=== PATIENT | female | born 1940 | race Caucasian/White ===

== ENCOUNTER 2017-04-22 07:25 | Inpatient (IN) | payer MEDICARE ==
[~2017-04-22] VITALS: Ht 149.9 cm; Wt 78.3 kg
[~2017-04-22 07:25] MED LIST: ASPI-147 PO; CALTCHW5 PO; CENTCHW3 PO; LEVO50TA4 PO; OMEP40CA2 PO; PROB500T8 PO; ROSU10 PO; [UNRECOGNIZED DRUG - CODE] PO
[2017-04-22] MEDS ORDERED: INSULIN HUMAN REGULAR 1,000 UNITS/10 ML VIAL SQ PRN (08:15)
[2017-04-22] MEDS ORDERED: CHLORHEXIDINE GLUCONATE 2 % 1 PACK (2 CLOTHS) TOPICAL PRN (08:15)
[2017-04-22] MEDS ORDERED: ceFAZolin 2 GM PREMIX 50 ML IV SCH (08:15)
[2017-04-22] MEDS ORDERED: METOPROLOL TARTRATE 25 MG TAB PO PRN (08:15)
[2017-04-22] MEDS ORDERED: POVIDONE IODINE 5% (ANTISEPSIS KIT) 4 APPLICATIONS EACH NARE PRN (08:15)
[2017-04-22] MEDS ORDERED: CHLORHEXIDINE GLUCONATE 4% SOLN 120 ML BTL TOPICAL SCH (08:15)
[2017-04-22] MEDS ORDERED: LACTATED RINGER'S 1000 ML IV PRN (08:15)
[2017-04-22] MEDS ORDERED: SODIUM CHLORID 0.9% 500 ML IV PRN (08:15)
[2017-04-22] MEDS ORDERED: GENTAMICIN SULFATE 80 MG/2 ML VIAL ONE (09:28)
[2017-04-22] MEDS ORDERED: EXPAREL PERI-ARTICULAR INJECTION (TOTAL VOL. 100 ML) P-ARTICULR SCH ×2 (10:00)
[2017-04-22] MEDS ORDERED: SODIUM CHLORIDE 0.9% IV SCH ×5 (10:00→13:00)
[2017-04-22] MEDS ORDERED: TRANEXAMIC ACID IV SCH ×5 (10:00→13:00)
[2017-04-22] MEDS ORDERED: ACETAMINOPHEN 1000 MG/100 ML 100 ML IV ONE (10:07)
[2017-04-22] MEDS ORDERED: MORPHINE SULFATE 4 MG/ML INJ IV PUSH PRN (10:15)
[2017-04-22] MEDS ORDERED: ACETAMINOPHEN/HYDROcodone 325 MG/7.5 MG TAB PO PRN (10:15)
[2017-04-22] MEDS ORDERED: MAGNESIUM HYDROXIDE SUSP 30 ML CUP PO PRN (10:15)
[2017-04-22] MEDS ORDERED: SODIUM CHLORIDE 0.9% FLUSH 5 ML FLUSH IVF PRN (10:15)
[2017-04-22] MEDS ORDERED: Post-op Orders (for Pharmacy) MISC XX ONE (10:15)
[2017-04-22] MEDS ORDERED: ONDANSETRON HCL 4 MG/2 ML VIAL IVP PRN (10:15)
[2017-04-22] MEDS ORDERED: ZOLPIDEM TARTRATE 5 MG TAB PO PRN (10:15)
--- NOTE | 2017-04-22 10:18 | HHI.FF ---
Face to Face Verification Diagnosis: (1) Status post total right knee replacement Physical Therapy Gait training Knee: Total knee, Protocol: Right, Gait training, Full weight bearing Right LE Weight Bearing: WB as tolerated Right LE Range of Motion: Active ROM (AROM, AAROM, PROM. ROM goal is 0 to 135 degrees. ROM in the OR was 0 to 150 degrees.) Nursing Nursing: Dressing changes Dressing Changes: Daily dressing change (Start on postop day 7.), Coverderm/ [place] Additional Instructions Remove steristrips on postop day 14. I have seen patient Sandra Shirley on 04/22/17. My clinical findings support the need for the requested home health care services because: Ltd mobility - disease progression Limited ability to care for self High risk of falls I certify that my clinical findings support that this patient is homebound because: Post-op weakness Unsteady gait/balance Unsafe to leave home unassisted Bahman Fischer MD (Charles) Apr 22, 2017 10:18
[2017-04-22] MEDS ORDERED: ROPIVACAINE 0.5% PF INJ 30 ML VIAL ONE (10:22)
[2017-04-22] MEDS ORDERED: ECASA81 PO (10:22)
--- NOTE | 2017-04-22 12:31 | HHI.PR ---
Immediate Post Op Note Procedure Date: Apr 22, 2017 Pre Op Diagnosis: (1) Primary osteoarthritis of right knee Post Op Diagnosis: (1) Primary osteoarthritis of right knee Surgeon: Lamont Fischer MD Jowl Trimmer(s): MAGED Gilmore Procedure: Right total knee arthroplasty with [place] Triathlon prosthesis, uncemented. Findings: Osteoarthritis. Complications: None Specimen(s) removed: None Estimated blood loss: 100ml Anesthesia: Regional Block (Adductor canal), Spinal, Local (Exparel) Drains: Hemovac (2) IVF Patient to: PACU Patient Condition: Good Implant/Devices: SEE IMPLANT LOG (if applicable) Date/Time of Procedure: SEE SURGICAL CARE RECORD Bahman Fischer MD (Charles) Apr 22, 2017 12:31
[2017-04-22] MEDS ORDERED: HYDR-3580 PO (12:34)
--- NOTE | 2017-04-22 13:08 | MP ---
cc: Codey CORDERO. DATE OF SURGERY 04/22/1929 PREOPERATIVE DIAGNOSIS Primary osteoarthritis right knee. POSTOPERATIVE DIAGNOSIS Primary osteoarthritis right knee. OPERATION PERFORMED Right total knee arthroplasty with [place] Triathlon prosthesis (uncemented). SURGEON Phylicia Cordero MD GEOMAGNETICIAN MAGED Gilmore ANESTHESIA Spinal with supplemental adductor canal block and local. INDICATIONS AND FINDINGS This 77-year-old woman has at least a 2-year history of right knee pain progressively worsening to the point that her ambulation tolerance is one-half block because of pain. She has difficulty with stairs as well as standing from a seated position and vice versa. This awakens her. She has to lean on a cart to shop. Treatment has included anti-inflammatory agents, analgesics, activity modification, intraarticular steroids, ambulatory aids and exercises without any real improvement in function. Physical findings showed genu varum with medial laxity and tenderness in the medial compartment especially. X-rays showed loss of articular cartilage to [id number] in the medial compartment with osteophytes, eburnation and patellofemoral irregularities. Operative findings were consistent with the radiographic findings with there being significant arthritis throughout the knee but especially in the medial compartment where there was loss of articular cartilage to subchondral bone, osteophytes. There was eburnation. PROSTHESIS USED [place] Triathlon prosthesis with the femur being a size 3 right, uncemented, cruciate-retaining, the tibia being a tritanium baseplate size 3, the spacer being a 9-mm cruciate-retaining X3 polyethylene liner and the patella being a size 32-mm asymmetric patella. This was tritanium backed. PROCEDURE The patient was brought to the clean-air operating suite and a spinal anesthetic was administered followed by an adductor canal block. The patient was then placed in a supine position on the operating table with a small rolled sheet under the right hip and pneumatic tourniquet being placed about the right thigh. The limb was then prepped with alcohol, Hibiclens and Chloraprep and draped in the usual manner with the knee draped free. Preoperatively according to protocol she received prophylactic antibiotic in the form of Ancef and also received tranexamic acid. These were both according to protocols. The appropriate time-out procedure was carried out. Local anesthesia was administered into the incision area prior to making the incision. The incision was then made from three fingerbreadths above the superior medial pole of the patella down to the medial aspect of the tibial tubercle. The incision was deepened through subcutaneous tissues to the retinacular structures which were exposed medially and laterally. Medial retinacular incision was made from the superior medial pole of the patella down to the tibial tubercle and up into the quadriceps tendon splitting it longitudinally in the medial one-third. The patella was reflected. The infrapatellar fat pad was debulked. Medial and lateral dissection was carefully carried out. Medial meniscectomy and lateral meniscectomy were initiated. Fenestration was made in the distal end of the femur using the appropriate drill. The distal femoral cutting guide and jig were assembled for a 5-degree 8-mm cut. The cutting block was stabilized with pins. The jig was removed. The distal femoral cut was completed with the oscillating saw. The sizing guide was then positioned in place and stabilized with pins. The size was determined to be a size 3. The 4-in-1 cutting block was then positioned in place. Anterior and posterior cuts were made followed by posterior and anterior chamfer cuts. Osteophytes were trimmed. Attention was directed to the tibia. Medial and lateral meniscectomies were completed. The extramedullary distal femoral cutting guide and jig were assembled for the appropriate cut. The proximal tibial cutting guide was stabilized with pins. The jig was removed. The depth of the cut was verified with the spacer block. The proximal tibial cut was completed with the oscillating saw. This was then checked again with a spacer block. Everything looked appropriate. The posterior capsule was then was then injected with Exparel and anesthetized. The trial prosthesis was then inserted as noted above for sizes. The tibial baseplate and spacer were inserted first followed by the femoral component which was impacted into place onto the femur. The rotation for the tibial component was then affirmed and stabilized with pins. The patella drill guide was positioned in place. Patella drill holes were made. The trial patella was positioned in place. The knee was then taken through a range of motion which was easily 0 degrees extension to 150 degrees of flexion. The stability was excellent in flexion and extension. Distal femoral drill holes were then made followed by removal of the femoral and patellar trials. The tibial punch was impacted through its guide and then removed. The tibial drill guide was positioned in place and seated appropriately. Drill holes were made. The cut ends of bone were cleaned with pulse lavage. The tibial component was then impacted into place and seated appropriately. Spacer was inserted as well. The femoral component was then impacted into place and seated appropriately. The patella component was then positioned and was seated with the patella vice. The drains were brought out the superolateral aspect of the suprapatellar pouch. The remainder of the Exparel was then injected throughout the knee in the usual manner. Wound closure then commenced using 0 Vicryl interrupted [id number] sutures for retinacular and capsular structures, 2-0 Vicryl interrupted simple sutures with buried knots for the subcutaneous tissues and 4-0 Monocryl continuous subcuticular closure for the skin. The wound was then dressed with Steri-Strips followed by a silver impregnated dressing and Sof-Rol, cooling pad and Hao bandage from the base of the toe to midthigh. The patient was transferred from the operating room to the recovery room in satisfactory condition having tolerated the procedure well. COUNTS Correct. SPECIMENS None. ESTIMATED BLOOD LOSS 100 mL. MD RONNA Santizo/CARLOS /12:43 PM /12:58 PM
[2017-04-22] MEDS: LACTATED RINGER'S 1000 ML INJ 1,000 ML IV SCH ×2 (13:10→22:41)
[2017-04-22] MEDS: KETOROLAC TROMETHAMINE 30 MG/ML (IVP) VIAL IVP SCH ×2 (13:10→17:14)
[2017-04-22] MEDS ORDERED: DO NOT ADM ANY ANTICOAGULANT DRUGS PRN (13:45)
--- NOTE | 2017-04-22 13:59 | RADRPT ---
EXAM DATE/TIME: 04/22/2017 13:25 [facility] COMPARISON: No previous studies available for comparison. INDICATIONS : Post op total right knee. MEDICAL HISTORY : None. SURGICAL HISTORY : None. ENCOUNTER: Initial ACUITY: 1 day PAIN SCORE: 7/10 LOCATION: Right Knee FINDINGS: AP and lateral views of the knee following arthroplasty reveals a prosthesis in anatomic alignment. F racture is not appreciated. Surgical drain is evident CONCLUSION: Status post total knee arthroplasty. Krishna Armstrong MD FACR Board Certified Radiologist. This report was verified electronically.
--- NOTE | 2017-04-22 14:39 | PD.CONS ---
HPI Service [facility] Hospitalists Consult Requested By Lamont Fischer M.D. Reason for Consult Medical Management Primary Care Physician Darrian Malone MD Diagnoses: (1) Status post total right knee replacement (2) GERD (gastroesophageal reflux disease) (3) Hypothyroidism History of Present Illness Written by Guy Steel PA-C, acting as scribe for Dr. Shellie Chavez on 04/22/17 at 14:38. Ms. Shirley is 77 yo, with history of hyperlipidemia, GERD, hypothyroidism, and osteoarthritis of both shoulders. Ms. Shirley underwent total right knee arthroplasty on 04/22/[address] Fischer , who consulted the hospitalist team to medically manage her condition. At time of interview, she had recently returned from surgery and was seen in the PACU. Ms. Shirley stated her pain was well controlled. She denied past history of difficulty post surgery. She denied cough, shortness of breath, urinary difficulties, abdominal/chest pain. She did endorse occasional constipation. She denied nausea, vomiting, or diarrhea. She denied visual issues at time of interview. A 10 pt ROS was conducted and, except as noted above, was negative. Review of Systems Constitutional: DENIES: Fatigue, Fever, Change in appetite Endocrine: DENIES: Polyuria Eyes: DENIES: Blurred vision Respiratory: DENIES: Apneas, Cough, Wheezing, Shortness of breath Cardiovascular: DENIES: Chest pain Gastrointestinal: DENIES: Abdominal pain Genitourinary: DENIES: Urinary frequency, Urinary incontinence, Urgency, Hematuria Hematologic/lymphatic: DENIES: Bruising Neurologic: DENIES: Headache Psychiatric: DENIES: Anxiety Except as stated in HPI: all other systems reviewed are Neg Past Family Social History Allergies: Coded Allergies: No Known Allergies (Verified Allergy, Unknown, 04/22/17) Past Medical History GERD Hyperlipidemia Cholecystitis Hypothyroidism Osteoarthritis of both shoulders. Past Surgical History Broken pelvis repair Tonsillectomy Cholecystectomy Bilateral shoulder replacement BERTHA Reported Medications Reported Meds & Active Scripts Active Hydrocodone-Acetamin 7.5-325 (Hydrocodone/Acetaminophen) 7.5 Mg-325 Mg Tablet 1 Tab PO Q4H PRN Reported Centrum Silver (Multiple Vitamins W/ Minerals) 400 Mcg-250 Mcg Chw 1 Tab PO EVERY OTHER DAY Probenecid 500 Mg Tab 50 Mg PO Q12HR Fish Oil Concentrate ([place]-3 Fatty Acids) 1,000 Mg Capsule 6 Cap PO HS Caltrate 600+D Chew (Calcium Carbonate-Vitamin D Chew) 600-400 Mg-Unit Chew 1 Tab PO EVERY OTHER DAY Omeprazole 40 Mg Cap 40 Mg PO BID Ecotrin Low Strength (Aspirin) 81 Mg Tabdr 81 Mg PO DAILY Crestor (Rosuvastatin Calcium) 10 Mg Tab 10 Mg PO DAILY Levothyroxine (Levothyroxine Sodium) 50 Mcg Tab 50 Mcg PO DAILY Active Ordered Medications Current Medications Medications (Trade) Dose Ordered Sig/Davin Route Start Time Stop Time Status Last Admin Lactated Ringer's 1,000 ml @ 30 mls/hr Q24H PRN IV 04/22/17 08:15 04/25/17 08:14 04/22/17 08:20 Sodium Chloride 500 ml @ 30 mls/hr [id number] PRN IV 04/22/17 08:15 04/25/17 08:14 (Lopressor) 25 mg EXECUTIVE MEETING MANAGER PRN PO 04/22/17 08:15 04/25/17 08:14 (Betadine 5% Antisepsis Kit) 1 applic EXECUTIVE MEETING MANAGER PRN EACH NARE 04/22/17 08:15 04/25/17 08:14 04/22/17 08:20 (Chlorhexidine 2% Cloth) 3 pack EXECUTIVE MEETING MANAGER PRN TOPICAL 04/22/17 08:15 04/25/17 08:14 04/22/17 07:45 (NovoLIN R INJ) See Protocol Table ... EXECUTIVE MEETING MANAGER PRN SQ 04/22/17 08:15 04/25/17 08:14 (Hibiclens 4% Top Soln) 1 applic ONCE TOPICAL 04/22/17 08:15 04/25/17 08:14 04/22/17 08:00 Cefazolin Sodium/ Dextrose 50 ml @ 100 mls/hr EXECUTIVE MEETING MANAGER IV 04/22/17 08:15 04/25/17 08:14 04/22/17 11:38 Tranexamic Acid 504 mg/Sodium Chloride 105.04 ml @ 200 mls/ hr ONCE IV 04/22/17 10:00 04/22/17 16:00 04/22/17 11:40 Tranexamic Acid 504 mg/Sodium Chloride 105.04 ml @ 200 mls/ hr ONCE IV 04/22/17 13:00 04/22/17 19:00 Bupivacaine Liposome 20 ml/ Sodium Chloride 100 ml @ 200 mls/hr ONCE P-ARTICULR 04/22/17 10:00 04/22/17 16:00 (Synthroid) 50 mcg DAILY PO 04/23/17 09:00 (Benemid) 50 mg Q12HR PO 04/22/17 21:00 (Oscal-D 250-125) 500 mg Q48H PO 04/23/17 09:00 (Theragran M Tab) 1 tab EVERY OTHER DAY PO 04/23/17 09:00 (Protonix) 40 mg BID PO 04/22/17 21:00 (Lipitor) 20 mg DAILY PO 04/23/17 09:00 Lactated Ringer's 1,000 ml @ 80 mls/hr [id number] IV 04/22/17 10:11 04/22/17 13:10 (NS Flush) 2 ml UNSCH PRN IVF 04/22/17 10:15 (NS Flush) 2 ml BID IVF 04/22/17 21:00 Cefazolin Sodium 1000 mg/Sodium Chloride 100 ml @ 200 mls/hr Q6H IV 04/22/17 18:00 04/23/17 06:29 (Morphine Inj) 4 mg Q3H PRN IV PUSH 04/22/17 10:15 ([place] 7.5-325 Mg) 1 tab Q4H PRN PO 04/22/17 10:15 ([place] 7.5-325 Mg) 2 tab Q4H PRN PO 04/22/17 10:15 (Toradol Inj) 15 mg Q6H IVP 04/22/17 12:00 04/24/17 06:01 04/22/17 13:10 Tranexamic Acid 504 mg/Sodium Chloride 105.04 ml @ 200 mls/ hr UNSCH IV 04/22/17 13:00 04/22/17 19:00 04/22/17 14:47 (Zofran Inj) 4 mg Q6H PRN IVP 04/22/17 10:15 (Colace) 100 mg BID PO 04/23/17 21:00 (Ambien) 5 mg HS PRN PO 04/22/17 10:15 (Milk Of Magnesia Liq) 30 ml DAILY PRN PO 04/22/17 10:15 (Ecotrin Ec) 81 mg BID PO 04/22/17 21:00 Miscellaneous Information ALL NURSING DEPARTFL... UNSCH PRN .XX 04/22/17 13:45 04/23/17 13:44 Family History Mother- of myocardial infarction at age 78 Father-had Bone cancer, age and cause of not noted. Brother-had esophageal cancer. Social History Pt reproted she stopped smoking in 1992; duration and pack use not disclosed. Pt denied alcohol use Pt denied illicit/recreational drug use. Physical Exam Vital Signs Vital Signs Date Time Temp Pulse Resp B/P (MAP) Pulse Ox O2 Delivery O2 Flow Rate FiO2 04/22/17 12:58 97.4 72 16 101/49 (66) 97 Nasal Cannula 2 04/22/17 08:30 97.3 68 16 120/57 (78) 97 Physical Exam GENERAL: This is a well-nourished, well-developed patient, in no apparent distress. SKIN: No rashes, ecchymoses or lesions. Cool and dry.Right legged wrapped in camila bandage. HEAD: Atraumatic. Normocephalic. EYES: Pupils equal round and reactive. Extraocular motions intact. No scleral icterus. No injection or drainage. ENT: Nose without bleeding or purulent drainage. Airway patent. NECK: Trachea midline. No lymphadenopathy. Supple and nontender. CARDIOVASCULAR: Regular rate and rhythm without murmurs, gallops, or rubs. RESPIRATORY: Clear to auscultation. Breath sounds equal bilaterally. No wheezes , rales, or rhonchi. GASTROINTESTINAL: Abdomen soft, non-tender, nondistended. No hepato- splenomegaly or guarding. MUSCULOSKELETAL: Extremities without clubbing, cyanosis, or edema. NEUROLOGICAL: Awake and alert. Cranial nerves II through XII intact. Motor and sensory grossly within normal limits. Five out of 5 muscle strength in all muscle groups. Speech was clear and fluent. Imaging Last Impressions Knee X-Ray 04/22/17 1011 Signed Impressions: Service Date/Time: Saturday, April 22, 2017 13:25 - CONCLUSION: Status post total knee arthroplasty. Krishna Armstrong MD Assessment and Plan Problem List: (1) Status post total right knee replacement ICD Code: Z96.651 - Presence of right artificial knee joint (2) GERD (gastroesophageal reflux disease) ICD Code: K21.9 - Gastro-esophageal reflux disease without esophagitis (3) Hypothyroidism ICD Code: E03.9 - Hypothyroidism, unspecified Assessment and Plan Ms. Shirley is 77 yo, with history of hyperlipidemia, GERD, hypothyroidism, and osteoarthritis of both shoulders. Ms. Shirley underwent total right knee arthroplasty on 04/22/[address] Fischer, who consulted the hospitalist team to medically manage her condition. S/p post total right knee arthroplasty -Pain management per Orthopedics -Rehabilitation per Orthopedics -PT/OT Hyperlipidemia -Atorvastatin 20 mg daily Hypothyroidism -Levothyroxine 50 mcg daily GERD -Protonix 40 mg daily DVT prophylaxis: -ANGELIKA hose, use of AC therapy to be determined and initiated by surgery. This note was transcribed by zahira Steel PA-C. I, Dr. Lima Chavez personally performed the history, physical exam, and medical decision making; and confirmed the accuracy of the information in the transcribed note. Authenticated by Dr. Chavez on 04/22/17 at 14:38. Discussed Condition With Pt Problem Qualifiers (1) GERD (gastroesophageal reflux disease): Qualified Codes: K21.9 - Gastro-esophageal reflux disease without esophagitis (2) Hypothyroidism: Qualified Codes: E03.9 - Hypothyroidism, unspecified Guy Steel Jr. Apr 22, 2017 14:39 Lima Chavez MD Apr 22, 2017 16:03
[2017-04-22 16:00] VITALS: BP 118/56; PULSE 74; RESP 18; TEMP 96.8; O2SAT 96
[2017-04-22] MEDS: ACETAMINOPHEN/HYDROcodone 325 MG/7.5 MG TAB PO PRN (18:40)
[2017-04-22 20:46] VITALS: BP 92/50; PULSE 70; RESP 16; TEMP 96.9; O2SAT 95
[2017-04-22] MEDS ORDERED: OMEGA PO SCH (21:00)
[2017-04-22] MEDS ORDERED: PROBENECID 500 MG TAB PO SCH ×2 (21:00→23:00)
[2017-04-22] MEDS ORDERED: SODIUM CHLORIDE 0.9% FLUSH 5 ML FLUSH IVF SCH (21:00)
[2017-04-22] MEDS: ASPIRIN EC 81 MG TABEC PO SCH (22:52)
[2017-04-22] MEDS: PANTOPRAZOLE SOD 40 MG DELAYED RELEASE TAB PO SCH (22:52)
[2017-04-23 00:32] VITALS: BP 102/50; PULSE 68; RESP 16; TEMP 97.4; O2SAT 98
[2017-04-23] MEDS: KETOROLAC TROMETHAMINE 30 MG/ML (IVP) VIAL IVP SCH ×3 (01:13→12:56)
[2017-04-23] MEDS: ACETAMINOPHEN/HYDROcodone 325 MG/7.5 MG TAB PO PRN ×3 (01:14→12:47)
[2017-04-23 04:45] VITALS: BP 96/55; PULSE 67; RESP 16; TEMP 96.4; O2SAT 97
--- NOTE | 2017-04-23 06:23 | PD.ORT.PN ---
Subjective Post Op Day #: 1 Subjective Remarks She is doing well. There is not much pain. Range of Motion 0 to 70 degrees. Distance Walked 20 feet. Objective Vitals Vital Signs Date Time Temp Pulse Resp B/P (MAP) Pulse Ox O2 Delivery O2 Flow Rate FiO2 04/23/17 04:45 96.4 67 16 96/55 (69) 97 04/23/17 02:32 Nasal Cannula 2.00 04/23/17 02:17 17 04/23/17 02:17 17 04/23/17 00:32 97.4 68 16 102/50 (67) 98 04/22/17 20:46 96.9 70 16 92/50 (64) 95 04/22/17 16:00 96.8 74 18 118/56 (76) 96 04/22/17 14:30 97.6 71 20 114/55 (74) 99 Nasal Cannula 2 04/22/17 14:15 70 20 117/57 (77) 100 Nasal Cannula 2 04/22/17 14:00 68 20 108/53 (71) 99 Nasal Cannula 2 04/22/17 13:45 67 20 106/55 (72) 97 Nasal Cannula 2 04/22/17 13:30 68 20 97/55 (69) 96 Nasal Cannula 2 04/22/17 13:15 69 20 90/45 (60) 98 Nasal Cannula 2 04/22/17 12:58 97.4 72 16 101/49 (66) 97 Nasal Cannula 2 04/22/17 08:30 97.3 68 16 120/57 (78) 97 I/O 04/22/17 04/22/17 04/22/17 04/23/17 04/23/17 04/23/17 07:00 15:00 23:00 07:00 15:00 23:00 Intake Total 1950 ml 360 ml Output Total 100 ml 50 ml Balance 1850 ml 310 ml Intake Oral 450 ml 360 ml IV Total 1500 ml Output Drainage Total 50 ml Estimated Blood Loss 100 ml # Voids 2 2 # Bowel Movements 0 Imaging Last 24 hours Impressions Knee X-Ray 04/22/17 1011 Signed Impressions: Service Date/Time: Saturday, April 22, 2017 13:25 - CONCLUSION: Status post total knee arthroplasty. Krishna Armstrong MD Objective Remarks She is resting comfortably, supine in bed in the CPM. The dressing is dry and intact. The neurovascular status is intact. Assessment & Plan Ortho Post Op Day #: 1 Problem List: (1) Status post total right knee replacement ICD Codes: Z96.651 - Presence of right artificial knee joint Assessment and Plan Condition: Good. Orthopaedically stable. DVT prophylaxis: TEDs, ASA, sequentials. Discharge plans: Home with C. Has appointment. Rx [place] 7.5/325 Bahman Fischer MD (Charles) Apr 23, 2017 06:23
[2017-04-23 07:38] LABS: HEMATOCRIT 31.9 % (35.0-46.0); REVIEW FLAG FINAL
[2017-04-23 08:00] VITALS: BP 88/48; PULSE 65; RESP 16; TEMP 96.5; O2SAT 96
[2017-04-23] MEDS: ASPIRIN EC 81 MG TABEC PO SCH (08:14)
[2017-04-23] MEDS: PANTOPRAZOLE SOD 40 MG DELAYED RELEASE TAB PO SCH (08:14)
--- NOTE | 2017-04-23 08:14 | HHI.PR ---
Subjective Remarks Complaint of chest pain in the morning. eKG negative. Patient with gas pain. Will start Mylanta. Also with constipation. Passed gas, feel smuch better now. Did not have a BM x2 days. No nausea, vomiting, diarrhea or constipation. No palpitations. Also patien tsays he has GERD and is taking omeprazole. Objective Vitals Vital Signs Date Time Temp Pulse Resp B/P (MAP) Pulse Ox O2 Delivery O2 Flow Rate FiO2 04/23/17 07:23 17 04/23/17 07:23 17 04/23/17 04:45 96.4 67 16 96/55 (69) 97 04/23/17 02:32 Nasal Cannula 2.00 04/23/17 00:32 97.4 68 16 102/50 (67) 98 04/22/17 20:46 96.9 70 16 92/50 (64) 95 04/22/17 16:00 96.8 74 18 118/56 (76) 96 04/22/17 14:30 97.6 71 20 114/55 (74) 99 Nasal Cannula 2 04/22/17 14:15 70 20 117/57 (77) 100 Nasal Cannula 2 04/22/17 14:00 68 20 108/53 (71) 99 Nasal Cannula 2 04/22/17 13:45 67 20 106/55 (72) 97 Nasal Cannula 2 04/22/17 13:30 68 20 97/55 (69) 96 Nasal Cannula 2 04/22/17 13:15 69 20 90/45 (60) 98 Nasal Cannula 2 04/22/17 12:58 97.4 72 16 101/49 (66) 97 Nasal Cannula 2 04/22/17 08:30 97.3 68 16 120/57 (78) 97 I/O 04/22/17 04/22/17 04/22/17 04/23/17 04/23/17 04/23/17 07:00 15:00 23:00 07:00 15:00 23:00 Intake Total 1950 ml 360 ml 220 ml 100 ml Output Total 100 ml 50 ml 60 ml Balance 1850 ml 310 ml 160 ml 100 ml Intake Oral 450 ml 360 ml 120 ml IV Total 1500 ml 100 ml 100 ml Output Drainage Total 50 ml 60 ml Estimated Blood Loss 100 ml # Voids 2 2 1 # Bowel Movements 0 0 Result Diagram: 04/23/17 0500 Imaging Last Impressions Knee X-Ray 04/22/17 1011 Signed Impressions: Service Date/Time: Saturday, April 22, 2017 13:25 - CONCLUSION: Status post total knee arthroplasty. Krishna Armstrong MD Objective Remarks GENERAL: This is a well-nourished, well-developed patient, in no apparent distress. SKIN: No rashes, ecchymoses or lesions. Cool and dry.Right legged wrapped in camila bandage. CARDIOVASCULAR: Regular rate and rhythm without murmurs, gallops, or rubs. RESPIRATORY: Clear to auscultation. Breath sounds equal bilaterally. No wheezes , rales, or rhonchi. GASTROINTESTINAL: Abdomen soft, non-tender, nondistended. No hepato- splenomegaly or guarding. MUSCULOSKELETAL: Extremities without clubbing, cyanosis, or edema. NEUROLOGICAL: Awake and alert. Cranial nerves II through XII intact. Motor and sensory grossly within normal limits. Five out of 5 muscle strength in all muscle groups. Speech was clear and fluent. A/P Problem List: (1) Status post total right knee replacement ICD Code: Z96.651 - Presence of right artificial knee joint (2) GERD (gastroesophageal reflux disease) ICD Code: K21.9 - Gastro-esophageal reflux disease without esophagitis (3) Hypothyroidism ICD Code: E03.9 - Hypothyroidism, unspecified Assessment and Plan Ms. Shirley is 77 yo, with history of hyperlipidemia, GERD, hypothyroidism, and osteoarthritis of both shoulders. Ms. Shirley underwent total right knee arthroplasty on 04/22/[address] Fischer, who consulted the hospitalist team to medically manage her condition. S/p post total right knee arthroplasty -Pain management per Orthopedics -Rehabilitation per Orthopedics -PT/OT Hyperlipidemia -Atorvastatin 20 mg daily Hypothyroidism -Levothyroxine 50 mcg daily GERD -Protonix 40 mg daily Chest pain in the morning,. EKG normal. likely related to gas pain. Start Mylanta. Simethicone. Constipation: Bowel regimen. DVT prophylaxis: -ANGELIKA hose, use of AC therapy to be determined and initiated by surgery. Discussed Condition With Patient, nurse Cleared medically or DC Problem Qualifiers (1) GERD (gastroesophageal reflux disease): Qualified Codes: K21.9 - Gastro-esophageal reflux disease without esophagitis (2) Hypothyroidism: Qualified Codes: E03.9 - Hypothyroidism, unspecified Cosma,Lima MD Apr 23, 2017 08:14
[2017-04-23] MEDS ORDERED: CALCIUM/VITAMIN D 250 MG/125 U TAB PO SCH (09:00)
[2017-04-23] MEDS ORDERED: ATORVASTATIN 20 MG TAB PO SCH (09:00)
[2017-04-23] MEDS ORDERED: LEVOTHYROXINE SODIUM 50 MCG TAB PO SCH (09:00)
[2017-04-23] MEDS ORDERED: MULTIVITAMINS/MINERALS THERAPEUTIC TAB PO SCH (09:00)
[2017-04-23] MEDS ORDERED: ALUMINUM/MAGNESIUM/SIMETH 30 ML CUP PO PRN (09:00)
[2017-04-23] MEDS ORDERED: PNEUMOCOCCAL POLYVALENT INJ 25 MCG/0.5 ML SYR IM ONE (10:00)
[2017-04-23 12:00] VITALS: BP 96/49; PULSE 65; RESP 16; TEMP 96; O2SAT 94
--- NOTE | 2017-04-23 14:03 | EKG ---
Date Performed: 04/23/2017 Time Performed: 07:28:40 PTAGE: 77 years EKG: Sinus rhythm MARKED LEFT AXIS DEVIATION MINIMAL VOLTAGE CRITERIA FOR LVH, CONSIDER NORMAL VARIANT ABNORMAL ECG PREVIOUS TRACING : 04/05/2017 08.33 Compared to prior tracing no significant change DOCTOR: Nathaniel Duran Interpretating Date/Time 04/23/2017 14:00:56
[2017-04-23] MEDS ORDERED: DOCUSATE SODIUM 100 MG CAP PO SCH (21:00)
== END 2017-04-23 17:30 | disposition home health service (06) | DRG 470 ==
LOC: HSDI 07:25 → N06A 14:55
PROVIDERS: ADMIT Orthopaedic Surgery; ATTEND Orthopaedic Surgery
PROC: 0SBC0ZZ Excision of Right Knee Joint, Open Approach (ICD-10-PCS; 2017-04-22)
PROC: 0SBC0ZZ Excision of Right Knee Joint, Open Approach (ICD-10-PCS; 2017-04-22)
PROC: 3E0T3BZ Introduction of Anesthetic Agent into Peripheral Nerves and Plexi, Percutaneous Approach (ICD-10-PCS; 2017-04-22)
PROC: 0SRC0JA Replacement of Right Knee Joint with Synthetic Substitute, Uncemented, Open Approach (ICD-10-PCS; principal; 2017-04-22 10:34)
DX: M17.11 Unilateral primary osteoarthritis, right knee (principal); E03.9 Hypothyroidism, unspecified; M21.161 Varus deformity, not elsewhere classified, right knee; E78.5 Hyperlipidemia, unspecified; K21.9 Gastro-esophageal reflux disease without esophagitis; K59.00 Constipation, unspecified; M19.011 Primary osteoarthritis, right shoulder; M19.012 Primary osteoarthritis, left shoulder; Z79.899 Other long term (current) drug therapy; Z87.891 Personal history of nicotine dependence; Z96.612 Presence of left artificial shoulder joint; Z96.611 Presence of right artificial shoulder joint
CPT/HCPCS: 73560; 84484; 85014; 85018; 86850; 86900; 86901; 90732; 93005; C9290; J0131; J0690; J1580; J1885; J2795; J7120

== ENCOUNTER 2017-05-04 10:35 | Observation (INO) | payer MEDICARE ==
[~2017-05-04] VITALS: Ht 149.9 cm; Wt 50.5 kg
[~2017-05-04 10:35] MED LIST changes: +ECASA81 PO; +HYDR-3580 PO
[2017-05-04 10:43] VITALS: BP 131/59; PULSE 78; RESP 17; TEMP 98.3
[2017-05-04] MEDS ORDERED: SODIUM CHLORID 0.9% 500 ML INJ 500 ML IV ONE ×2 (11:30→13:45)
--- NOTE | 2017-05-04 11:52 | RADRPT ---
EXAM DATE/TIME: 05/04/2017 11:39 [facility] COMPARISON: No previous studies available for comparison. INDICATIONS : Dry heaves and vomitting. MEDICAL HISTORY : None. SURGICAL HISTORY : None. ENCOUNTER: Initial ACUITY: 1 day PAIN SCORE: 0/10 LOCATION: Bilateral chest FINDINGS: No focal consolidation. Retrocardiac density likely moderate size hiatal hernia. Previous bilateral s houlder replacement. Mild to moderate scoliosis. No effusion or pneumothorax. CONCLUSION: 1. No acute findings. Moderate-sized hiatal hernia. Cornelio Toure MD on May 04, 2017 at 11:50 Board Certified Radiologist. This report was verified electronically.
[2017-05-04 12:02] LABS: AUTOMATED NEUTROPHIL # 8.5 TH/MM3 (1.8-7.7); BASOPHIL # 0.1 TH/MM3 (0-0.2); BASOPHIL % 0.5 % (0.0-2.0); EOSINOPHIL # 0.1 TH/MM3 (0-0.4); EOSINOPHIL % 1.2 % (0.0-4.0); LYMPH % 12.4 % (9.0-44.0); LYMPHOCYTE # 1.3 TH/MM3 (1.0-4.8); MEAN CELL VOLUME 93.2 FL (80.0-100.0); MEAN CORPUSCULAR HEMOGLOBIN 31.8 PG (27.0-34.0); MEAN CORPUSCULAR HGB CONC 34.1 % (32.0-36.0); MONO % 5.7 % (0.0-8.0); NEUT % 80.2 % (16.0-70.0); PLATELET COUNT 534 TH/MM3 (150-450); RED BLOOD COUNT 3.87 MIL/MM3 (4.00-5.30); RED CELL DISTRIBUTION WIDTH 14.7 % (11.6-17.2); WHITE BLOOD COUNT 10.6 TH/MM3 (4.0-11.0)
[2017-05-04 12:05] LABS: BACTERIA, URINE OCC /hpf; BLOOD, URINE TRACE (NEG); COMMENT (UR) CULT NOT INDICATED; CULTURE IF INDICATED CULT NOT INDICATED; GLUCOSE,URINE NEG (NEG); HEMO FLAGS AUTO DIFF; KETONE, URINE 10 mg/dL (NEG); MUCUS URINE FEW /lpf (OCC); NITRITE,URINE NEG (NEG); SQUAMOUS EPITHELIAL CELL URINE 2 /hpf (0-5); TRANSITIONAL EPI CELLS, URINE 1 /hpf; URINE COLOR YELLOW (YELLW/STRAW)
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
[2017-05-04 12:53] LABS: ALT (GPT) 111 U/L (10-53); ANION GAP 10 MEQ/L (5-15); AST (GOT) 167 U/L (15-37); BICARBONATE 23.5 MEQ/L (21.0-32.0); BLOOD UREA NITROGEN 12 MG/DL (7-18); CHLORIDE 105 MEQ/L (98-107); GLOMERULAR FILTRATION RATE 86 ML/MIN (>89); POTASSIUM 3.8 MEQ/L (3.5-5.1); SODIUM (NA) 138 MEQ/L (136-145)
[2017-05-04 12:56] LABS: ALKALINE PHOSPHATASE 109 U/L (45-117); TOTAL BILIRUBIN ADULT 0.4 MG/DL (0.2-1.0)
[2017-05-04 13:04] LABS: CREATINE KINASE 50 U/L (26-192)
[2017-05-04 13:07] LABS: SCAN/DIFF AUTO DIFF CONFIRMED
[2017-05-04] MEDS ORDERED: SODIUM CHLOR 0.9% 1000 ML INJ 1,000 ML IV SCH (14:13)
[2017-05-04] MEDS ORDERED: SENNOSIDES 8.6 MG TAB PO PRN (14:15)
[2017-05-04] MEDS ORDERED: ONDANSETRON HCL 4 MG/2 ML VIAL IVP PRN (14:15)
[2017-05-04] MEDS ORDERED: LACTULOSE SYRUP 20 GM/30 ML CUP PO PRN (14:15)
[2017-05-04] MEDS ORDERED: MAGNESIUM HYDROXIDE SUSP 30 ML CUP PO PRN (14:15)
[2017-05-04] MEDS ORDERED: BISACODYL 10 MG SUPP RECTAL PRN (14:15)
[2017-05-04] MEDS ORDERED: NALOXONE HCL 0.4 MG/ML AMP IV PUSH PRN (14:15)
[2017-05-04] MEDS ORDERED: SODIUM CHLORIDE 0.9% FLUSH 10 ML FLUSH IV FLUSH PRN (14:15)
--- NOTE | 2017-05-04 14:17 | EKG ---
Date Performed: 05/04/2017 Time Performed: 12:07:49 PTAGE: 77 years EKG: Sinus rhythm PATTERN CONSISTENT WITH PULMONARY DISEASE INCOMPLETE RIGHT BUNDLE BRANCH BLOCK LEFT ANTERIOR FASCICU LAR BLOCK PROBABLE SEPTAL MYOCARDIAL INFARCTION ABNORMAL ECG Compared to the PREVIOUS TRACING from 05/04/17, now appears to have an IRBBB and LAFB DOCTOR: Varinder Tejeda Interpretating Date/Time 05/04/2017 14:15:47
--- NOTE | 2017-05-04 14:49 | RADRPT ---
EXAM DATE/TIME: 05/04/2017 14:25 [facility] COMPARISON: No previous studies available for comparison. INDICATIONS : Obstruction. MEDICAL HISTORY : None. SURGICAL HISTORY : None. ENCOUNTER: Initial ACUITY: 1 day PAIN SCORE: 0/10 LOCATION: Abdomen FINDINGS: Bowel gas pattern nonspecific without obstruction or free air. Advanced degenerative change in the alondra mbar spine with a rotatory levoscoliosis. Moderate osteoarthritis of the hips. CONCLUSION: 1. Nonspecific bowel gas pattern without obstruction or free air. Advanced degenerative change in lum bar spine. Cornelio Toure MD on May 04, 2017 at 14:46 Board Certified Radiologist. This report was verified electronically.
[2017-05-04 15:07] VITALS: BP 119/56; PULSE 74; RESP 16; O2SAT 95
--- NOTE | 2017-05-04 15:50 | RADRPT ---
EXAM DATE/TIME: 05/04/2017 15:15 [facility] COMPARISON: No previous studies available for comparison. INDICATIONS : Increased lab values. MEDICAL HISTORY : Stroke. Hypercholesterolemia. Gastroesophageal reflux disease. Thyroid disease. Glasses. Dentures. Di zziness. Chest pain. COPD. Asthma. Arthritis. Anxiety. Pancreatitis. SURGICAL HISTORY : Tonsillectomy. Cholecystectomy. Hysterectomy. Facial reconstruction. Bilateral shoulder replacement. Right knee replacement. ENCOUNTER: Initial ACUITY: 1 day PAIN SCORE: 1/10 LOCATION: Bilateral upper quadrant MEASUREMENTS: LIVER: 11.4 cm length COMMON DUCT: 8 mm RIGHT KIDNEY: 10.0 x 4.3 x 4.8 cm SPLEEN: 8.4 cm length FINDINGS: LIVER: Normal echotexture without focal lesion or ductal dilatation. Hepatopedal flow within the portal vei n. COMMON DUCT: No intraluminal mass or stone visualized. GALLBLADDER: Cholecystectomy PANCREAS: Not well seen. RIGHT KIDNEY: Normal renal cortical thickness. No evidence of hydronephrosis. There is a tiny hyperechogenic focu s in the parenchyma of the midpole parenchyma. Mildly prominent extrarenal pelvis. SPLEEN: No focal lesion. CONCLUSION: No focal lesions seen in the liver. Normal liver size. Frank Trent MD on May 04, 2017 at 15:45 Board Certified Radiologist. This report was verified electronically.
[2017-05-04] MEDS ORDERED: PROM12.54 PO (16:25)
[2017-05-04 16:50] VITALS: BP 122/57; PULSE 77; RESP 16; TEMP 98; O2SAT 96
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
[2017-05-04] MEDS: HEPARIN SODIUM - SQ 10,000 UNITS/ML VIAL SQ SCH (17:28)
[2017-05-04] MEDS: D5-1/2 NS + KCL 20 MEQ INJ 1,000 ML IV SCH (17:28)
[2017-05-04 19:28] VITALS: BP 134/68; PULSE 78; RESP 18; TEMP 98.8; O2SAT 94
[2017-05-04] MEDS: DOCUSATE SODIUM 50 MG/SENNA 8.6 MG TAB PO SCH (23:28)
[2017-05-04] MEDS: PANTOPRAZOLE SOD 40 MG DELAYED RELEASE TAB PO SCH (23:28)
[2017-05-04] MEDS: PROBENECID 500 MG TAB PO SCH (23:28)
[2017-05-04] MEDS: SODIUM CHLORIDE 0.9% FLUSH 10 ML FLUSH IV FLUSH SCH (23:28)
[2017-05-04 23:43] VITALS: BP 117/56; PULSE 78; RESP 18; TEMP 98.7; O2SAT 97
[2017-05-05] MEDS: D5-1/2 NS + KCL 20 MEQ INJ 1,000 ML IV SCH ×2 (02:31→09:03)
[2017-05-05] MEDS: HEPARIN SODIUM - SQ 10,000 UNITS/ML VIAL SQ SCH (02:31)
[2017-05-05 03:50] VITALS: BP 119/57; PULSE 77; RESP 18; TEMP 98.7; O2SAT 97
[2017-05-05 05:58] LABS: AUTOMATED NEUTROPHIL # 7.5 TH/MM3 (1.8-7.7); BASOPHIL % 0.4 % (0.0-2.0); EOSINOPHIL # 0.1 TH/MM3 (0-0.4); EOSINOPHIL % 1.5 % (0.0-4.0); HEMATOCRIT 31.4 % (35.0-46.0); HEMO FLAGS DIFF FINAL; LYMPH % 13.9 % (9.0-44.0); LYMPHOCYTE # 1.3 TH/MM3 (1.0-4.8); MEAN CELL VOLUME 91.6 FL (80.0-100.0); MEAN CORPUSCULAR HEMOGLOBIN 31.9 PG (27.0-34.0); MEAN CORPUSCULAR HGB CONC 34.8 % (32.0-36.0); MONO % 6.5 % (0.0-8.0); NEUT % 77.7 % (16.0-70.0); PLATELET COUNT 512 TH/MM3 (150-450); RED BLOOD COUNT 3.43 MIL/MM3 (4.00-5.30); RED CELL DISTRIBUTION WIDTH 14.6 % (11.6-17.2); WHITE BLOOD COUNT 9.6 TH/MM3 (4.0-11.0)
[2017-05-05 06:12] LABS: PROTHROMBIN TIME - PATIENT 11.3 SEC (9.8-11.6)
[2017-05-05 06:24] LABS: ALT (GPT) 111 U/L (10-53); ANION GAP 10 MEQ/L (5-15); AST (GOT) 147 U/L (15-37); BICARBONATE 23.5 MEQ/L (21.0-32.0); BLOOD UREA NITROGEN 7 MG/DL (7-18); CHLORIDE 106 MEQ/L (98-107); GLOMERULAR FILTRATION RATE 95 ML/MIN (>89); POTASSIUM 3.5 MEQ/L (3.5-5.1); SODIUM (NA) 139 MEQ/L (136-145)
[2017-05-05 06:27] LABS: ALKALINE PHOSPHATASE 102 U/L (45-117); TOTAL BILIRUBIN ADULT 0.4 MG/DL (0.2-1.0)
[2017-05-05 08:21] VITALS: BP 122/60; PULSE 68; RESP 20; TEMP 98.2; O2SAT 96
[2017-05-05] MEDS: DOCUSATE SODIUM 50 MG/SENNA 8.6 MG TAB PO SCH (09:00)
[2017-05-05] MEDS: SODIUM CHLORIDE 0.9% FLUSH 10 ML FLUSH IV FLUSH SCH (09:00)
[2017-05-05] MEDS ORDERED: ASPIRIN EC 81 MG TABEC PO SCH (09:00)
[2017-05-05] MEDS ORDERED: LEVOTHYROXINE SODIUM 50 MCG TAB PO SCH (09:00)
[2017-05-05] MEDS: PANTOPRAZOLE SOD 40 MG DELAYED RELEASE TAB PO SCH (09:03)
[2017-05-05] MEDS: PROBENECID 500 MG TAB PO SCH (09:04)
--- NOTE | 2017-05-05 10:32 | HHI.PR ---
Subjective Remarks Patient says she is feeling well today. Reports that nausea has resolved. Was able to tolerate breakfast. Feels like she might be able to go home if she tolerates lunch. Objective Vital Signs Date Time Temp Pulse Resp B/P (MAP) Pulse Ox O2 Delivery O2 Flow Rate FiO2 05/05/17 08:21 98.2 68 20 122/60 (80) 96 05/05/17 03:50 98.7 77 18 119/57 (77) 97 05/04/17 23:43 98.7 78 18 117/56 (76) 97 05/04/17 19:28 98.8 78 18 134/68 (90) 94 05/04/17 16:50 98.0 77 16 122/57 (78) 96 05/04/17 16:19 05/04/17 15:07 74 16 119/56 (77) 95 Room Air 05/04/17 10:47 95 Room Air 05/04/17 10:43 98.3 78 17 131/59 (83) I/O 05/04/17 05/04/17 05/04/17 05/05/17 05/05/17 05/05/17 07:00 15:00 23:00 07:00 15:00 23:00 Intake Total 500 ml 944 ml Balance 500 ml 944 ml Intake Oral 200 ml IV Total 500 ml 744 ml Result Diagram: 05/05/1743 05/05/1743 Objective Remarks GENERAL: Patient sitting up in bed. Appears comfortable. SKIN: Warm and dry. HEAD: Normocephalic. EYES: No scleral icterus. No injection or drainage. NECK: Supple, trachea midline. No JVD. CARDIOVASCULAR: Regular rate and rhythm without murmurs, gallops, or rubs. RESPIRATORY: Breath sounds equal bilaterally. No accessory muscle use. GASTROINTESTINAL: Abdomen soft, non-tender, nondistended. MUSCULOSKELETAL: No cyanosis, or edema. Right knee incision with Steri-Strips intact. No signs of infection. BACK: Nontender without obvious deformity. No CVA tenderness. A/P Assessment and Plan //Intractable nausea and vomiting. -Likely secondary to narcotics, possibly constipation. -AP abdomen with no acute findings. = Appears resolved. Possibly secondary to narcotics. //Constipation. Resolved. -Laxatives when necessary. -Avoid narcotics. Continue to monitor. //Acute transaminitis -AST, ALC 167, 111. Abdomen nontender. -Liver ultrasound unremarkable. -Tylenol level 15.6 on admission, with most recent dose of 1000 mg of Tylenol at 8 AM. He shouldn't has only been taking about 2000 mg of Tylenol per day, with transition to extra strength Tylenol which she took once this morning. We' ll consult gastroenterology. = LFTs stable today 147 AST, 111 aLT. Ultrasound liver negative. Hepatitis panel still pending. //Hypothyroidism. chronic. Patient with constipation, and sensitivity to cold. TSH 4.3 in the treatment range. Continue levothyroxine //Hyperlipidemia. Continue to Hold statin due to transaminitis //Hypoglycemia. Blood glucose 63 on admission. = Discontinue D5 fluids due to patient tolerating diet. //DVT prophylaxis. Heparin twice daily. Discharge Planning Likely discharge home after lunch today. We'll need to follow-up with primary care to monitor LFTs, go over hepatitis panel. Patient conveys understanding Angel Llanes MD May 05, 2017 10:32
[2017-05-05] MEDS ORDERED: ZOFR4TAB3 SL (10:35)
[2017-05-05 12:31] VITALS: BP 105/62; PULSE 73; RESP 20; TEMP 98.2; O2SAT 96
--- NOTE | 2017-05-05 19:28 | HHI.FF ---
Face to Face Verification Diagnosis: (1) Status post total right knee replacement Physical Therapy Order: Evaluate and Treat Home Health Nursing Order: Wound care and dressing changes I have seen patient Sandra Shirley on 05/05/17. My clinical findings support the need for the requested home health care services because: Limited ability to care for self I certify that my clinical findings support that this patient is homebound because: Post-op weakness Continue home health PT for recent right knee replacement. Angel Llanes MD May 05, 2017 19:28
== END 2017-05-05 16:17 | disposition home or self-care (01) ==
LOC: NEPC 10:35 → NEDA 14:15 → NEPFCDU 16:00
PROVIDERS: ADMIT Internal Medicine; ATTEND Internal Medicine
DX: J44.9 Chronic obstructive pulmonary disease, unspecified (principal); R53.1 Weakness; I34.1 Nonrheumatic mitral (valve) prolapse; R11.2 Nausea with vomiting, unspecified; M19.90 Unspecified osteoarthritis, unspecified site; F41.9 Anxiety disorder, unspecified; E78.00 Pure hypercholesterolemia, unspecified; R07.9 Chest pain, unspecified; K21.9 Gastro-esophageal reflux disease without esophagitis; M10.9 Gout, unspecified; Z79.899 Other long term (current) drug therapy; R74.0 Nonspecific elevation of levels of transaminase and lactic acid dehydrogenase [LDH]; Z96.653 Presence of artificial knee joint, bilateral; E03.9 Hypothyroidism, unspecified; K59.00 Constipation, unspecified; E16.2 Hypoglycemia, unspecified; R94.31 Abnormal electrocardiogram [ECG] [EKG]; I45.2 Bifascicular block; K44.9 Diaphragmatic hernia without obstruction or gangrene
CPT/HCPCS: 71010; 74000; 76705; 80053; 80074; 80307; 81001; 82550; 82948; 83690; 84439; 84443; 84480; 84484; 85025; 85610; 93005; 96365; 96366; 97162; 99285; G0378; G8987; G8988; J1644; J3480; J7030; J7040